=== PATIENT | female | born 1980 | race Caucasian/White ===

== ENCOUNTER 2018-02-02 09:00 | Inpatient (IN) | payer BC ==
[~2018-02-02] VITALS: Ht 162.6 cm; Wt 97.7 kg
[~2018-02-02 09:00] MED LIST: LO-DOSE ASPIRIN81 M2 PO; PRENATAL TABLE1 EACH PO; ZANTAC150 MG PO
[2018-02-02 11:23] VITALS: BP 141/75
[2018-02-02 12:06] LABS: HEMATOCRIT 38.1 % (36.0-46.0); MCHC 34.1 G/DL (30.0-36.0); MCV 84.9 FL (83-99); PLATELET COUNT 182 K/uL (156-360); RBC DIS.WIDTH-SD 39.6 % (39-53); RED BLOOD COUNT 4.49 M/uL (3.80-5.20); WHITE BLOOD COUNT 12.2 K/uL (4.1-10.2)
[2018-02-02 12:59] VITALS: BP 123/75
[2018-02-02 14:43] LABS: AMPHETAMINE NEGATIVE (500 ng/mL); BARBITURATES NEGATIVE (200 ng/mL); BENZODIAZEPINES NEGATIVE (150 ng/mL); BUPRENORPHINE NEGATIVE (10 ng/mL); COCAINE NEGATIVE (150 ng/mL); METHADONE NEGATIVE (200 ng/mL); METHAMPHETAMINE NEGATIVE (500 ng/mL); OPIATES (MORPHINE) NEGATIVE (100 ng/mL); OXYCODONE NEGATIVE (100 ng/mL); PHENCYCLIDINE NEGATIVE (25 ng/mL); PROPOXYPHENE NEGATIVE (300 ng/mL); THC CANNABINOIDS NEGATIVE (50 ng/mL); TRICYCLIC ANTIDEPRESSANTS NEGATIVE (300 ng/mL)
[2018-02-02 17:27] VITALS: BP 127/66
[2018-02-02] MEDS ORDERED: PERCOCET 5/31 TABLET PO (17:31)
[2018-02-02] MEDS ORDERED: MOTRIN800 MG PO (17:31)
[2018-02-02 18:19] VITALS: BP 121/60
[2018-02-02 20:35] VITALS: BP 129/79
[2018-02-02 22:30] VITALS: BP 141/84
[2018-02-03 00:27] VITALS: BP 134/72
[2018-02-03 02:42] VITALS: BP 119/79
[2018-02-03 07:38] LABS: BASOPHIL (%) 0.3 % (0-1); BASOPHIL COUNT 0.1 K/uL (0-0.1); EOSINOPHIL (%) 0.8 % (0-5); EOSINOPHIL COUNT 0.1 K/uL (0-0.3); HEMATOCRIT 37.2 % (36.0-46.0); HEMOGLOBIN 12.4 G/DL (11.9-15.5); IMMATURE GRANULOCYTE (%) 0.8 % (0.0-0.7); LYMPHOCYTE (%) 21.9 % (15-42); LYMPHOCYTE COUNT 3.5 K/uL (1.0-2.8); MCH 28.8 PG (29.0-34.0); MCHC 33.3 G/DL (30.0-36.0); MCV 86.3 FL (83-99); MONOCYTE (%) 7.7 % (3-12); MONOCYTE COUNT 1.2 K/uL (0-0.8); NEUTROPHIL (%) 68.5 % (45-76); NEUTROPHIL COUNT 10.8 K/uL (1.8-6.4); PLATELET COUNT 184 K/uL (156-360); RBC DIS.WIDTH-CV 13.2 % (11.8-14.6); RBC DIS.WIDTH-SD 40.6 % (39-53); RED BLOOD COUNT 4.31 M/uL (3.80-5.20); WHITE BLOOD COUNT 15.8 K/uL (4.1-10.2)
[2018-02-03 19:31] VITALS: BP 124/74
[2018-02-03 22:43] VITALS: BP 138/82
[2018-02-04 07:16] VITALS: BP 142/82
[2018-02-04 11:25] VITALS: BP 124/80
[2018-02-04 15:35] VITALS: BP 136/85
== END 2018-02-05 14:29 | disposition home or self-care (01) | DRG 765 ==
LOC: 2SOUTH 09:00 → 2WEST 10:57 → 2SOUTH 11:14 → 2WEST 02-04 00:58
PROVIDERS: Obstetrics & Gynecology
PROC: 10D00Z1 Extraction of Products of Conception, Low, Open Approach (ICD-10-PCS; principal; 2018-02-02)
PROC: 10907ZC Drainage of Amniotic Fluid, Therapeutic from Products of Conception, Via Natural or Artificial Opening (ICD-10-PCS; 2018-02-02)
DX: O30.043 Twin pregnancy, dichorionic/diamniotic, third trimester (principal); Z3A.35 35 weeks gestation of pregnancy; O36.5932 Maternal care for other known or suspected poor fetal growth, third trimester, fetus 2; Z37.2 Twins, both liveborn; O32.1XX2 Maternal care for breech presentation, fetus 2; O43.193 Other malformation of placenta, third trimester; O99.214 Obesity complicating childbirth; E66.9 Obesity, unspecified; Z68.36 Body mass index [BMI] 36.0-36.9, adult
CPT/HCPCS: 85025; 85027; 86850; 86900; 86901; 88307; J0690; J1100; J2274; J2405; J3010; J7120